=== PATIENT | male | born 1970 | race Caucasian/White ===

== ENCOUNTER → 2019-05-14 | Outpatient (CLI) | payer OTHER | LOC: M.CT 09:29 | DX: Z13.6 Encounter for screening for cardiovascular disorders (principal) ==

== ENCOUNTER → 2019-05-21 | Outpatient (CLI) | payer BC | LOC: M.CT 07:23 | DX: R91.8 Other nonspecific abnormal finding of lung field (principal) ==

== ENCOUNTER → 2019-05-26 | Outpatient (CLI) | payer BC | LOC: M.CT 10:24 | DX: N20.0 Calculus of kidney (principal); K56.41 Fecal impaction; M25.78 Osteophyte, vertebrae; Z90.49 Acquired absence of other specified parts of digestive tract ==